=== PATIENT | male | born 2000 | race American Indian/Alaskan Native ===

== ENCOUNTER 2020-02-24 11:22 | Emergency (ER) | payer OTHER ==
[2020-02-24] MEDS ORDERED: fentaNYL 100 MCG/2 ML INJ ONE (11:34)
[2020-02-24] MEDS ORDERED: ONDANSETRON 4 MG/2 ML INJ ONE (11:35)
[2020-02-24] MEDS ORDERED: SODIUM CHLORIDE 0.9% 500 ML 500 ML IV ONE (11:40)
[2020-02-24] MEDS ORDERED: LIDOCAINE PF 100 MG/5 ML (CARDIAC SYRINGE) IV ONE (11:45)
[2020-02-24] MEDS ORDERED: KETAMINE 500 MG/5 ML VIAL MDV ONE (11:45)
[2020-02-24] MEDS ORDERED: LIDOCAINE (1%) 10 MG/1 ML VIAL 20 ML MDV ONE (11:47)
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
[2020-02-24 12:09] VITALS: BP 175/67
[2020-02-24 12:11] LABS: Basophils % (Auto) 0.3 % (0.0-1.8); Eosinophils % (Auto) 0.3 % (0.0-4.3); Hematocrit 33.4 % (35.5-45.6); Lymphocytes # (Auto) 3.5 K/mm3 (1.2-5.4); Lymphocytes % (Auto) 29.7 % (13.4-35.0); Mean Corpuscular HGB Conc 33 % (32-34); Mean Corpuscular Volume 88 fl (84-94); Monocytes # (Auto) 0.5 K/mm3 (0.0-0.8); Monocytes % (Auto) 4.5 % (0.0-7.3); Platelet Count 263 K/mm3 (140-440); Red Blood Count 3.81 M/mm3 (3.65-5.03); Red Cell Distribution Width 12.9 % (13.2-15.2)
[2020-02-24 12:24] LABS: Alanine Aminotransferase 30 units/L (7-56); Albumin 2.6 g/dL (3.9-5)
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
[2020-02-24 12:26] LABS: Bilirubin,Direct < 0.2 mg/dL (0-0.2)
[2020-02-24 12:27] LABS: Blood Urea Nitrogen 8 mg/dL (9-20); Hemolysis Index 59
[2020-02-24 12:28] LABS: INR 3.07 (0.87-1.13)
[2020-02-24 12:29] LABS: Partial Thromboplastin Time 52.9 Sec. (24.2-36.6)
[2020-02-24 12:31] LABS: Calcium 2.1 mg/dL (8.4-10.2)
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
[2020-02-24] MEDS ORDERED: ONDANSETRON 4 MG/2 ML INJ IV ONE (13:01)
[2020-02-24] MEDS ORDERED: fentaNYL 100 MCG/2 ML INJ IV ONE (13:02)
[2020-02-24] MEDS ORDERED: LORazepam 2 MG/ML VIAL IV ONE (13:02)
[2020-02-24 13:44] LABS: BUN/Creatinine Ratio 13
== END 2020-02-24 12:30 | disposition other institution (70) ==
LOC: ED 11:22
DX: S37.012A Minor contusion of left kidney, initial encounter (principal); T14.8XXA Other injury of unspecified body region, initial encounter; R58 Hemorrhage, not elsewhere classified; W34.00XA Accidental discharge from unspecified firearms or gun, initial encounter; Y93.89 Activity, other specified; Y92.89 Other specified places as the place of occurrence of the external cause; Y99.8 Other external cause status
CPT/HCPCS: 36415; 36430; 71045; 80048; 80076; 82550; 83690; 83735; 85025; 85610; 85730; 86850; 86900; 86901; 86920; 96374; 96375; 99291; J2060; J2405; J3010; P9016; 80320; G0480; J2001